=== PATIENT | male | born 1950 | race Caucasian/White ===

== ENCOUNTER → 2017-12-07 | Outpatient (CLI) | payer OTHER ==
[~2017-12-07] MED LIST: ASCO10004 PO; ATOR10TA PO; BIMA2.5D RIGHTEYE; CETI10TA24 PO; CHOL500015 PO; CLOB15OI TP; DIPH25CA61 PO; DORZ1DRO5 RIGHTEYE; FAMO40TA61 PO; FISH1CAP PO; HYDR25TA11 PO; PSYL174P2 PO; SAW450CA7 PO; TRIA15CR53 TP; UBID100C24 PO; VITA1TAB19 PO; XANAX PO; [UNRECOGNIZED DRUG - OTHER] PO; [UNRECOGNIZED DRUG - OTHER] PO; [UNRECOGNIZED DRUG - OTHER] PO
[2017-12-07 15:31] LABS: ALBUMIN 4.1 g/dL (3.4-5.0); ANION GAP 7 mmol/L (5-15); CALCIUM 8.8 mg/dL (8.5-10.1); CHLORIDE 105 mmol/L (98-107)
[2017-12-07 15:41] LABS: ALANINE AMINOTRANSFERASE 36 U/L (12-78); ALKALINE PHOSPHATASE 96 U/L (45-117); BILIRUBIN,TOTAL 0.9 mg/dL (0.2-1.0); CHOL/HDL RATIO 3.1; CHOLESTEROL, TOTAL 184 mg/dL (140-239); CREATININE 1.01 mg/dL (0.7-1.3); FREE T4 (FREE THYROXINE) 1.19 ng/dL (0.76-1.46); HDL CHOL % 32 % (26-37); HDL CHOLESTEROL (DIRECT) 59 mg/dL (40-60); LDL CHOLESTEROL,CALCULATED 113 mg/dL (54-169); LDL/HDL RATIO 1.9 (0.5-3.0); TOTAL PROTEIN 7.9 g/dL (6.4-8.2); TRIGLYCERIDES 62 mg/dL (50-200); VLDL CHOLESTEROL 12 mg/dL (0-25)
== END | disposition home or self-care (01) ==
LOC: LAB 14:16
PROVIDERS: ATTEND Internal Medicine Hospice and Palliative Medicine
DX: Z12.5 Encounter for screening for malignant neoplasm of prostate (principal); E78.00 Pure hypercholesterolemia, unspecified
CPT/HCPCS: 36415; 80053; 80061; 84153; 84439; 84443; G0103

== ENCOUNTER → 2017-12-07 | Outpatient (CLI) | payer OTHER ==
[2017-12-07 15:17] LABS: BASOPHILS # (AUTO) 0.02 x10^3/uL (0-0.1); BASOPHILS % (AUTO) 0 % (0-1); EOSINOPHILS # (AUTO) 0.63 x10^3/uL (0-0.4); EOSINOPHILS % (AUTO) 8 % (1-7); LYMPHOCYTES # (AUTO) 1.66 x10^3/uL (1-3.4); LYMPHOCYTES % (AUTO) 20 % (22-44); MD NO; MEAN CORPUSCULAR HEMOGLOBIN 30.9 pg (27.5-34.5); MEAN CORPUSCULAR HGB CONC 33.5 g/dL (33.2-36.2); MEAN CORPUSCULAR VOLUME 92.4 fL (81-97); MEAN PLATELET VOLUME 7.7 fL (7.4-10.4); MONOCYTES # (AUTO) 0.74 x10^3/uL (0.2-0.8); MONOCYTES % (AUTO) 9 % (2-9); NEUTROPHILS # (AUTO) 5.24 x10^3/uL (1.8-6.8); NEUTROPHILS % (AUTO) 63 % (42-75); PLATELET COUNT 314 x10^3/uL (130-400); RED BLOOD COUNT 5.18 x10^6/uL (4.38-5.82); RED CELL DISTRIBUTION WIDTH 12.9 % (9.4-14.8)
[2017-12-07 15:25] LABS: INTERNATIONAL NORMALIZED RATIO 1.02 (0.93-1.1); PROTHROMBIN TIME 10.5 Seconds (9.6-11.5)
== END | disposition home or self-care (01) ==
LOC: STAR 14:01
PROVIDERS: ATTEND Neurological Surgery
DX: Z01.818 Encounter for other preprocedural examination (principal); M51.26 Other intervertebral disc displacement, lumbar region; M41.84 Other forms of scoliosis, thoracic region
CPT/HCPCS: 36415; 71046; 85025; 85610; 85730; 93005

== ENCOUNTER 2017-12-19 09:59 | Day surgery (SDC) | payer OTHER ==
[~2017-12-19] VITALS: Ht 185.4 cm; Wt 89.9 kg
[2017-12-19 10:46] VITALS: BP 147/95
[2017-12-19] MEDS ORDERED: EPINEPHRINE 1 MG/ML, 1ML ONE (11:44)
[2017-12-19] MEDS ORDERED: BACITRACIN 50,000 UNIT ONE (11:44)
[2017-12-19] MEDS ORDERED: BUPIVACAINE/PF 0.5% ONE (11:44)
[2017-12-19] MEDS ORDERED: THROMBIN 5,000 UNIT VIAL TP ONE (11:44)
[2017-12-19] MEDS ORDERED: LACTATED RINGERS 1,000 ML IV SCH (12:02)
[2017-12-19] MEDS ORDERED: HYDROCORTISONE 100 MG INJ. ONE (12:07)
[2017-12-19] MEDS ORDERED: REMIFENTANIL 2 MG ONE (12:07)
[2017-12-19] MEDS ORDERED: ROCURONIUM 10 MG/ML,10ML ONE (12:09)
[2017-12-19] MEDS ORDERED: PROPOFOL 10 MG/ML, 20ML ONE (12:09)
[2017-12-19] MEDS ORDERED: CEFAZOLIN 1,000 MG ONE ×2 (12:09)
[2017-12-19] MEDS ORDERED: LIDOCAINE 1%, 2ML SQ PRN (12:30)
[2017-12-19] MEDS ORDERED: DEXAMETHASONE 4 MG/ML, 1ML ONE ×2 (13:17)
[2017-12-19] MEDS ORDERED: ONDANSETRON 2MG/ML, 2ML ONE ×2 (13:18→14:26)
[2017-12-19] MEDS ORDERED: ACETAMINOPHEN 325 MG TABLET PO PRN (13:30)
[2017-12-19] MEDS ORDERED: morphine SULFATE 10 MG/ML, 1ML IV PRN (13:30)
[2017-12-19] MEDS ORDERED: MEPERIDINE/PF 25MG/0.5ML IVPush PRN (13:30)
[2017-12-19] MEDS ORDERED: ONDANSETRON 2MG/ML, 2ML IVPush PRN (13:30)
[2017-12-19] MEDS ORDERED: FENTANYL PF 100 MCG/2ML IV PRN (13:30)
[2017-12-19] MEDS ORDERED: OXYcodone 5 MG/5 ML ORAL.SOL UDC PO PRN (13:30)
[2017-12-19] MEDS ORDERED: HYDROcodone/APAP 7.5-325MG/15ML UDC PO PRN (13:30)
[2017-12-19] MEDS ORDERED: ACETAMINOPHEN 650 MG/20.3 ML UDC ONE (13:58)
[2017-12-19] MEDS ORDERED: OXYcodone 5 MG/5 ML ORAL.SOL UDC ONE (13:58)
[2017-12-19] MEDS ORDERED: morphine SULFATE 10 MG/ML, 1ML ONE (13:58)
[2017-12-19 14:42] LABS: ANION GAP 11 mmol/L (5-15); CALCIUM 8.5 mg/dL (8.5-10.1); CHLORIDE 108 mmol/L (98-107); CREATININE 1.07 mg/dL (0.7-1.3)
== END 2017-12-19 16:30 ==
LOC: OUT 09:59
PROVIDERS: ATTEND Neurological Surgery
DX: M48.061 Spinal stenosis, lumbar region without neurogenic claudication (principal); M51.26 Other intervertebral disc displacement, lumbar region; Z87.39 Personal history of other diseases of the musculoskeletal system and connective tissue; E78.00 Pure hypercholesterolemia, unspecified; G43.909 Migraine, unspecified, not intractable, without status migrainosus; Z98.890 Other specified postprocedural states; Z72.89 Other problems related to lifestyle; Z88.8 Allergy status to other drugs, medicaments and biological substances
CPT/HCPCS: 36415; 63047; 63048; 72100; 80048; J0171; J0690; J1100; J1720; J2270; J2405; J2704; J3490